=== PATIENT | female | born 1970 | race Caucasian/White ===

== ENCOUNTER 2016-10-22 18:11 | Inpatient (IN) | payer MEDICAID, OTHER ==
[~2016-10-22] VITALS: Ht 152.4 cm; Wt 52.2 kg
[2016-10-22 18:18] VITALS: BP 117/84; PULSE 107; RESP 20; O2SAT 99
--- NOTE | 2016-10-22 20:37 | ED.REPORT ---
HPI-Psychiatric Illness Date of Service Oct 22, 2016 ED Provider: Tulio Burgess DO Pt is an otherwise healthy 46 year old female who presents to the ED complaining of auditory hallucinations. She c/o associated visual and tactile hallucinations. She reports that the voices call her names and state "cunt, I'm going to kill you, you're going to be a missing person, I'm going to put you under the ground. The pt had also went missing recently, but she reports that she did that on her own. She denies vomiting, chills, fever, head injury, and overdose. She denies smoking, alcohol use, and drug use. She denies hurting herself and denies bruising or injury aside from her abdominal surgery. Nursing Notes Stated Complaint: PSYCH EVAL Chief Complaint: Psychiatric Complaint Nursing Notes Reviewed: Yes Allergies: Coded Allergies: Penicillins (Verified Allergy, Unknown, 10/22/16) morphine (Verified Allergy, Unknown, 10/22/16) General Time Seen by MD: 20:28 Chief Complaint Hallucinations, auditory Hx Obtained From: Patient Arrived By: Walk-in Onset Occurred: Onset unknown Symptom Duration: Since onset Severity: Current: No pain currently Severity: Maximum: No pain Recent Healthcare: No recent doctor visit, No recent hospitalization Similar Sx Previous: No Risk-Psychiatric Illness Suicide Risk Stratification Suicide Risk Factors - Adult: No: Alcohol use, Substance abuse RF Statements: Risk factors reviewed Past Medical History Past Medical History None reported - Healthy Past Surgical History Abdominal Smoking History Unknown if Ever Smoker Social History Alcohol Use: Denies alcohol use Drug Use: Denies drug use Other Social History: Good social support Review of Systems + Sensory hallucinations Denies injury aside from surgical operation Constitutional: Denies: Chills, Fever GI: Reports: Diarrhea, Denies: Vomiting Skin: Denies Bruising, Denies Unexplained bruises Psychiatric: Reports: Hallucinations, auditory, Hallucinations, visual Complete sys rev & neg: except as marked. Physical Exam Initial Vital Signs Vital Signs (First) Date Time Temp Pulse Resp B/P Pulse Ox O2 Delivery O2 Flow Rate FiO2 10/22/16 18:18 37.3 107 20 117/84 99 Room Air Initial VS: Reviewed Head / Eyes: Atraumatic, Normocephalic, PERRL ENT: Mucous membranes moist, Conjunctiva normal, No scleral icterus Neck: Supple, Full range of motion Respiratory: Breath sounds normal, Clear to auscultation, No respiratory distress Cardiovascular: Regular rate & rhythm, Heart sounds normal, Intact distal pulses Abdomen / GI: Soft, Non-tender Extremities: Vascular intact, Neuro intact Skin: Warm, Dry, No cyanosis General/Constitutional: Awake, Alert, Cooperative, Not toxic appearing Neurologic: Oriented X3, Speech NL Abnormal Mood/Affect: Positive: Depressed Abnormal Thinking / Perception: Positive: Hallucinations, auditory, Hallucinations, visual She is now acting out on her auditory hallucinations to the point that she is disappearing. She has active psychosis and she does not feel safe. She is gravely disabled. Interpretation & Diagnostics Lab Results Interpretation Result Diagram: 10/22/16 2030 10/22/16 2030 Test 10/22/16 20:13 10/22/16 20:30 Hold Urine Received (Received) White Blood Count 5.5th/mm3 (3.8-10.1) Red Blood Count 4.52mil/mm3 (3.90-5.20) Hemoglobin 13.5g/dL (12.0-15.6) Hematocrit 39.2% (35.0-46.0) Mean Corpuscular Volume 86.7fL (81-100) Mean Corpuscular Hemoglobin 29.9pg (27.0-35.0) Mean Corpuscular Hemoglobin Concent 34.4% (32.0-37.0) Red Cell Distribution Width 11.9% (12.3-15.4) Platelet Count 276bil/L (150-400) Neutrophils (%) (Auto) 47.5% (40-74) Lymphocytes (%) (Auto) 41.9% (14-46) Monocytes (%) (Auto) 8.3% (4-12) Eosinophils (%) (Auto) 1.6% (0-5) Basophils (%) (Auto) 0.7% (0-3) Sodium Level 139mEq/L (134-144) Potassium Level 4.0mEq/L (3.5-5.2) Chloride Level 101mEq/L (97-108) Carbon Dioxide Level 24mmol/L (18-29) Blood Urea Nitrogen 13mg/dL (6-24) Creatinine 0.77mg/dL (0.57-1.00) Estimat Glomerular Filtration Rate 115mL/min (>59) Glucose Level 101mg/dL (60-99) Calcium Level 9.1mg/dL (8.5-10.1) Total Bilirubin 0.2mg/dL (0.0-1.2) Aspartate Amino Transf (AST/SGOT) 13U/L (0-50) Alanine Aminotransferase (ALT/SGPT) 13U/L (0-32) Alkaline Phosphatase 69U/L (25-150) Total Protein 7.1g/dL (6.4-8.4) Albumin 4.4g/dL (3.4-5.0) Thyroid Stimulating Hormone (TSH) 1.330uIU/mL (0.450-4.500) Re-Eval/Medical Decision Source of Hx: Old records Re-Evaluation/Progress : Time of Eval: 21:34 Re-Evaluation/Progress Note: Pt rechecked. Informed pt of plan for admit. Pt understands and agrees with plan for admit. All questions addressed. Consultation : Consulted With: Psychiatry Call Returned at: 21:42 Space Engineer: Will see patient, Agrees with eval, Agrees with plan, Accepts admit Note: metal control worker spoke with psychiatrist who is accepting her for admission. Counseled Regarding: Diagnosis, Lab results, Need for admission Discharge & Departure Impression: Primary Impression: Auditory hallucination Additional Impressions: Hallucinations, visual Depression Depression Type: unspecified Qualified Code: F32.9 - Major depressive disorder, single episode, unspecified Acute psychosis Disposition: ADMITTED TO HOSPITAL Discharge Condition All VS Reviewed: Yes Condition: Stable Referrals: Jillian Serrano (PCP) J Carlosibsarabjit Attestation Portions of this note were transcribed by Elvi Ruffin. I, Dr. Burgess personally performed the history, physical exam and medical decision-making; I reviewed and confirmed the accuracy of the information in the transcribed note. Signed by: Jona Guillaume, 10/22/16 and 21:40. copies to: Jillian Serrano Todd P DO Oct 22, 2016 20:37 Elvi Diggs Oct 22, 2016 21:20
[2016-10-22 20:41] LABS: BASOPHILS % (AUTO) 0.7 % (0-3); EOSINOPHILS % (AUTO) 1.6 % (0-5); MONOCYTES % (AUTO) 8.3 % (4-12); Mean Corpuscular Hemoglobin 29.9 pg (27.0-35.0); Mean Corpuscular Volume 86.7 fL (81-100); NEUTROPHILS % (AUTO) 47.5 % (40-74); Platelet Count 276 bil/L (150-400)
[2016-10-23] MEDS ORDERED: Magnesium Hydroxide 10 mL Oral Concentration PO PRN (00:50)
[2016-10-23] MEDS ORDERED: Alum-Mag Hydrox-Simeth 30 mL Suspension PO PRN (00:50)
[2016-10-23] MEDS ORDERED: Benzocaine-Menthol Lozenge 2/Pkg PO PRN (00:50)
--- NOTE | 2016-10-23 02:43 | NUR ---
New Admit Voluntary admit certified for 6 days. Pt presented to the emergency department seeking help. She has stopped smoking for several months. She uses nicotine gum. She denies the use of alcohol or recreational drugs. She reports a history of COPD and heart failure in relation to her diverticulitis. She had colon surgery, colonoscopy and reconnect surgery in 2013. For the last year she has felt a threatening presence in her life that she states wants to make her disappear. She has been hearing and feeling this negative presence that tells her horrible things. This negative presence wants her to kill herself but she states "I want to live". Pt reports feeling anxious and difficulty sleeping. She received Zyprexa 20mg po in the ED prior to admission. She signed all admission paperwork and was noted to be asleep by 0200. Addendum: 10/23/16 at 0616 by SIVAN TALAMANTES RN Pt has remained asleep since 0200 with no noted distress or awakening per protocol checks. Total sleep 4+ hours.
[2016-10-23] MEDS ORDERED: OLAN20TA16 (11:47)
[2016-10-23] MEDS ORDERED: KLO5T (11:47)
--- NOTE | 2016-10-23 15:19 | HP ---
[address] [address] HISTORY AND PHYSICAL PATIENT: SALINA LOWE : 1970 MR#: [id number] ADMIT: 10/23/2016 JOB ID: [id number] IDENTIFICATION OF THE PATIENT: The patient is a 46-year-old female who presented to the emergency department with evidence of increasing concern of hallucinations; auditory voices of derogatory, depreciating comments and significant tactile hallucinations. The patient was agreeable to sign herself in on a voluntary basis with noted previous involvement with [facility]. CHIEF COMPLAINT: "I do not think my medicines are working." This is per patient report. HISTORY OF PRESENT ILLNESS: As stated above, the patient is a 46-year-old female, who reportedly presented to the emergency department complaining of auditory hallucinations. She reports that the voices tell her that she is not worthy, says negative and depreciating comments. She reports that she identifies that she has been seeing Dr. Munoz at [facility] and is currently prescribed doses of: 1. Citalopram 40 mg daily. 2. Klonopin 0.25 mg t.i.d. p.r.n. 3. Zyprexa 20 mg q.h.s. She reportedly has a long-term history of treatment for depression and anxiety, and indicates that she is not currently connected with a therapist. She reports that her voices have increased in nature over the past six months with increasing intensity over the past week per patient report and the mother's report. The patient has made comments about jumping off of [place]. She also identifies that she has been wearing only certain colors because the voices tell her that they would kill her or turn her family members inside out if she wore anything else. She reports no prior history of psychiatric hospitalization but did indicate that she has been tried on various medications in the past. In reviewing additional history, she did admit to previous difficulties with alcohol and methamphetamine abuse. She reportedly had two separate DUIs in [place] in 2015. The patient reportedly states that she has warrants for her arrest in [place] because of failure to appear for court dates. She denied any history of abuse or trauma. She indicated that she had been twice in her life and, fortunately, no children. PAST MEDICAL HISTORY: She denies any surgical fracture or head trauma history. She does have a history of diverticulitis and has received a care in the past for such. Other medical history is reviewed through the emergency department, I agree with findings. ALLERGIES: Substantial for allergies to: 1. PENICILLIN. 2. MORPHINE. MEDICATIONS: Her current medications as noted above. PAST PSYCHIATRIC HISTORY: Substantial for the above information. SOCIAL HISTORY: Again, the patient lives at home with her mother. She indicated that she has been twice. No children. She admitted to the above methamphetamine and alcohol abuse. She indicated that she has never been in a residential treatment setting. FAMILY HISTORY: Positive for history of depression in a maternal grandfather. DEVELOPMENT HISTORY: She reportedly is originally from the [facility]. She indicated that she graduated from [employer] in [place]. She attended classes at [employer] but no associate degree. MENTAL STATUS EXAMINATION: On general appearance, the patient was cooperative, polite. She maintained good eye contact throughout. Her speech is of soft tone and whisper-like formation. Her mood is neutral. Affect is somewhat anxious and guarded. Her thought process shows no evidence of random flight of ideas, loose or disconnected thinking. Her thought content, she denied any evidence of current suicidal or homicidal ideation. No evidence of active hallucinations or delusions. She was alert, oriented to time and place. Her attention and concentration intact. Memory intact in the short term, prison, recent. Insight and judgment are poor. PHYSICAL EXAMINATION: Vital signs of current: Temperature is 37.3, pulse 107, respirations 20, BP 117/84. PLAN: 1. Recommendation is for continuation of Zyprexa 20 mg q.h.s. 2. Continuation of trazodone 100 mg q.h.s. 3. Release is to be signed for [facility] for further data collection and review prior to institution of alternative agents.
--- NOTE | 2016-10-23 15:54 | NUR ---
Obs Dayshift Pt spent most of her day in bed, very tired, mumbling, and appears med effected. Pt got up for meals and afternoon group. Appears disorganized, disheveled. Poor ADL's, Good meals. Pt appeared to be sleeping most of the time she was in bed.
--- NOTE | 2016-10-23 19:06 | NUR ---
[id number]. nurs. S: "They are going to kill me" O: Pt isolating in bed much of day, in bed, resting and sleeping, stating that sleeping helps block out the evil /negative internal stim sensations she is experiencing. Pt with flat, sad affect, stating that medication is making her feel groggy. P:CNCP
--- NOTE | 2016-10-23 19:32 | NUR ---
Farm Equipment Technician/Counselor: S: "I want to get better and my medicines have to be correct." O: Patient only slept 3.75 hours last night as per staff. She denies S/I and H/I. She reports hearing voices stating that they are going to "sink" her and make her "disappear." Depression is 10/10 and anxiety is 10/10. When asked her mood, patient stated, "Groggy." A: Patient is cooperative, anxious, depressed, flat affect, suspicious at times, limited insight, limited judgment. P: Follow the care plan, coordinate with out-patient providers.
--- NOTE | 2016-10-23 21:11 | NUR ---
Nursing Noc Long conversation with patients mother whom is very involved with patients mental health condition. Mother reports Zyprexa was started 07/19 and increased through 09/18 with negative effects. Reports patient felt flat without emotion and was unable to distinguish any improvement. Pt was started on Geodon 09/18 and reports improved mood but zero change in voices. Pt was also started on Citalopram at the same time as Geodon with marked worsening of symptoms per mother. Mother asked if perhaps some other antipsychotic might be more effective.
--- NOTE | 2016-10-24 05:04 | NUR ---
nursing, nights, 11-7 s/o- has appeared to sleep after 0 during q 15 minute assessments. a- no apparent distress. p- monitor behavior/emotional state, quality, times and amount of sleep, use and effect of medication. erika
--- NOTE | 2016-10-24 11:58 | PROG NOTE ---
[address] [address] PROGRESS NOTE PATIENT: SALINA LOWE : 1970 MR#: [id number] ADMIT: 10/23/2016 JOB ID: [id number] DATE: 10/24/2016 CHIEF COMPLAINT: "I would be willing to give it a try." This is per patient report in reference to initiation of doses of Abilify. HISTORY OF PRESENT ILLNESS: As stated above, the patient openly identified that she had been tried on various agents including Geodon, Zyprexa and Celexa through her outpatient care provider, Dr. Munoz, at [facility] over the past six months with no significant improvement. She readily identifies that she continues to experience auditory hallucinations with tactile representation, feeling that people are touching her. She also identifies significant belief and paranoia in that she is being chased and sought after to replace "God." Per staff report, the patient has been isolative to her room over the past 24 hours. She has come out to eat meals but has not showered. She appears to be mildly paranoid but appropriate on interaction. She was willing to engage in conversations about her medications and stated that she simply feels that they are just not working. OBJECTIVE: On mental status exam, she was cooperative, polite. She maintained intermittent eye contact. Her speech was brief with concrete yes and no answers. Her mood was neutral. Her affect was blunted. Her thought process showed no evidence of racing thoughts, flight of ideas, loose or disconnected thinking. She does appear to be internally preoccupied. Her thought content, she denied any evidence of current suicidal or homicidal ideation. She does appear to be mildly paranoid with active hallucinations noted. She was alert and oriented to time and place. Attention and concentration poor. Insight and judgment are poor. PHYSICAL EXAMINATION: Vital signs of current: Temperature is 37.3, pulse 107, respirations 20, BP 117/84. MEDICATION REVIEW: Includes: 1. Zyprexa 20 mg q.h.s. 2. Vistaril 50 mg q.4 h. p.r.n. 3. Trazodone 100 mg q.h.s. ASSESSMENT: AXIS I 1. Psychosis, not otherwise specified. 2. Rule out major depressive disorder with psychotic features. AXIS II Deferred. AXIS III None. AXIS IV Stressors are noted for chronic mental health, transition of life. AXIS V Global Assessment of Functioning current 30. PLAN: 1. Recommendation is for discontinuation of Zyprexa. 2. Initiation of Abilify 10 mg q.a.m. 3. The patient was informed that Dr. Pearson would be assuming care as of tomorrow and to discuss further for long-term disposition planning with eventual return to [facility].
[2016-10-24] MEDS: ARIPiprazole 10 mg Tablet PO SCH (13:08)
[2016-10-24 13:24] VITALS: BP 88/69; PULSE 96; RESP 16
--- NOTE | 2016-10-24 15:49 | NUR ---
spiritual care: pt request Visited with pt upon her request this morning. Pt was grateful to have a pm head cook to speak to about the voices that have been drowning her thoughts since 2013. She claims that she "just wants to get back to normal." She also stated that she feels desperate enough to kill herself although she doesn't talk about it much. I talked to pt at length and prayed with her. As I left I told staff in the [facility] about the concerns about pt hurting herself. Spiritual care will continue to follow as needed.
--- NOTE | 2016-10-24 17:45 | NUR ---
[id number]. nurs. S/O: Pt reported to newspaper delivery driver that she felt desperate about her ongoing experience with negative voices and was feeling suicidal because she wanted to "end it" , Pt stated that she was feeling better "I have certainly caught up on sleep" Pt attended grps and reported helpful and distracting from focus on internal stim. Pt presenting with brighter affect. Pt advised of Dr's plan to discontinue ineffective zyprexa per her concern and start abilify in am. Pt has completed VIDYA for her mother and pt will advise her of revised care plan. Pt also has craving for nicorettes and order to provide those and 14mg nicoderm prn given. Pt with brighter affect is feeling better and expresses hope that new med will help address AHs/evil presence. P:CNCP
--- NOTE | 2016-10-24 18:34 | NUR ---
Help Desk Support/Counselor: S: "I am ." O: Patient slept 7 hours last night as per staff. She denies S/I and H/I. She reports hearing voices but denies visual hallucinations. Depression and anxiety was not noted. A: Patient is cooperative, polite, blunted affect, internally preoccupied, paranoid, poor insight, poor judgment. P: Follow the care plan, coordinate with out-patient providers.
--- NOTE | 2016-10-25 04:23 | NUR ---
nursing, nights, 11-7 s/o- has appeared to sleep after 2214 during q 15 minute assessments. a- no apparent distress. p- monitor behavior/emotional state, quality, times and amount of sleep, use and effect of medication. erika
--- NOTE | 2016-10-25 04:48 | NUR ---
Nursing Noc Pt reports increased anxiety and difficulty attaining sleep at bed and requested medication assist with same. Appeared to be asleep at 2215 and remained asleep throughout the rest of the shift. Plan to start Abilify today with hopes of controlling reported hallucination which as of yet have not decreased. Pt reality based interaction with staff and noted to be able to carry conversation and use appropriate mood behavior.
[2016-10-25] MEDS: ARIPiprazole 10 mg Tablet PO SCH (08:00)
--- NOTE | 2016-10-25 13:00 | NUR ---
Nursing Note [id number] Mood, Behavior S/O: Pt out of room for meals briefly. Pt states she is having audio & tactile hallucinations that are derogatory in nature. She states the change from Zyprexa to Abilify hasn't been helpful. "Nothing seems to help. I've tried everything." She rates her depression is a "1" on a scale of 1-10/10 the best. She reports her anxiety is an "8" on a scale of 1-10/10 the worst. A: Pt con't to have debilitating hallucinations. P: Provide supportive environment. Monitor medications & effects.
--- NOTE | 2016-10-25 13:56 | PCM.PNPSY ---
Subjective Date of Service Oct 25, 2016 Subjective I spent 30 minutes both reviewing treatment plan with our clinical team, interviewing the patient and providing supportive/educational psychotherapy. I spent more than 50% of the time counseling the patient. I reviewed the treatment plan with the patient and discussed options available including the potential risks, benefits and side effects. sulma reports no change in intensity of auditory hallucinations of a derogatory nature telling her "we are going to kill you". She reports improvement in her Thought organization and mood stability. Staff reports that she has been isolating but is participating in one-to-one and group activities. She slept 8 hours . She feels her depression as a 10 out of 10 and her anxiety as a 10 out of 10. She denies medication side effects. She was able to identify her medications and what they were used to treat. Current Medications Current Medications Aripiprazole 10 mg DAILY PO Last administered on 10/25/16 08:00; Admin Dose 10 MG; Start 10/24/16 at 11:25 Nicotine 1 patch DAILY PRN TOPICAL Last administered on 10/25/16 08:00; Admin Dose 1 PATCH; Start 10/24/16 at 17:35 Nicotine Polacrilex 2 mg Q4H PRN BUCCAL Last administered on 10/24/16 21:10; Admin Dose 2 MG; Start 10/24/16 at 17:35 Olanzapine 20 mg HS PO Last administered on 10/23/16 20:34; Admin Dose 20 MG; Start 10/23/16 at 21:00; Stop 10/24/16 at 11:25; Status DC Mental Status Exam Appearance: Neat/well groomed Attitude: Pleasant Behavior: No unusual behavior Affect: Blunted Mood: Dysthymic Thought Process/Associations: Logical/Sequential, Goal Directed Speech Production: Normal Speech Rate: Normal Speech Articulation: Normal Thought Content: Negativistic, Other (persecutory auditory hallucinations) Danger to Self/Suicidal Ideati: None Danger to Others: None Hallucinations: Auditory (Endorses) Consciousness: Somnolent Orientation: Person, Place, Date, Situation Memory: Grossly Intact Estimate Intellectual Function: Above Average Basis for IQ estimate: Awareness current events, Word use/vocabulary, Educational history, Employment history Attention/Concentration & Cogn: Impaired Cognitive Testing Method: Abstract Reasoning during interview, Proverb interpretation Insight: Limited Judgement: Good Result Diagram: 10/22/16202910/22/162029 Mental Health Plan [place] AXIS I 1. Psychosis, not otherwise specified. 2. Rule out major depressive disorder with psychotic features. AXIS II Deferred. AXIS III None. AXIS IV Stressors are noted for chronic mental health, transition of life. AXIS V Global Assessment of Functioning current 30. Medications Treatments Patient is being provided with a high degree of safety through our unit structure and active adult engagement provided by our mental health professionals, mental health technicians, psychiatric nurses and myself. We are focusing on developing improved coping skills and identifying stressors that may have led to current episode. We will attempt to: * Integrate into therapeutic groups, milieu and individual therapy. * Maintain in a closely monitored and structured unit * Provide low-stimulation environment * Obtain collateral data to assist in treatment planning * Assess degree of lability of affect and impulse control * Complete safety plan * Decrease frequency of relapse and need for re-hospitalization * Denies thoughts of harm to self and/or others * Establish a consistent sleep pattern * Medication effective in stabilization of mood and/or thought process * Reduce the risk of imminent harm to self and/or others by providing a safe environment * Tolerates medication without side effects Patient will be on the following psychiatric medications: Abilify 10 daily Trazodone 100 at bedtime Patient's legal status Voluntary Anticipated number of hospital days to achieve above goals: Four Disposition: Home Gustavo Pearson MD Oct 25, 2016 13:56
[2016-10-25 14:14] VITALS: BP 91/65; PULSE 104; RESP 16
--- NOTE | 2016-10-25 15:09 | NUR ---
Spooler Operator Automatic/Counselor: S: "I have been very sleepy the past 2 days." O: Patient slept 8 hours last night as per staff. She denies S/I and H/I. She reports hearing voices that are telling her "horrible things." She denies visual hallucinations. Depression is 10/10 and anxiety is 10/10. When asked her mood, patient stated, "Very sleepy." In reference to the voices, patient also stated the voices are saying she's going to become a missing person and they're going to kill her. They were also saying when she leaves the hospital, they are going to pull her under the earth. She reports that the voices have names: Freddy, Marvin, Ailyn, , and Lucy, to name a few. A: Patient is cooperative, polite, blunted affect, internally preoccupied, depressed, anxious, poor insight, poor judgment. P: Follow the care plan, coordinate with out-patient providers.
--- NOTE | 2016-10-25 17:06 | NUR ---
Observations 0900 - 0 Pt was flat, isolative, anxious, depressed, internally preoccupied. Pt was in her room and in bed most of the shift. Pt is unsocial and mostly keeps to herself. Pt speech and eye contact was ok. Pt is pleasant and friendly upon approach. Pt is polite and cooperative. Pt maintained behavior control throughout the shift. Pt did not attend group or unit activities. Pt attended meals in D.R. and ate 100% of meals. Pt ate snack. Pt was observed every 15 minutes throughout the shift as ordered.
--- NOTE | 2016-10-26 05:25 | NUR ---
Nursing NOC shift Patient restless thru the night, prn vistaril fairly effective at HS. Staff provided 1:1 listening support. C/o discomfort w/ her bed/mattress; egg crate placed. No adverse side effects r/t 1st dose of Abilify, no GI upset, no rash, afebrile. 15 min checks completed thru the noc. CTM for changes.
[2016-10-26] MEDS: ARIPiprazole 10 mg Tablet PO SCH (08:16)
[2016-10-26 09:02] VITALS: BP 102/80; PULSE 60; RESP 16
--- NOTE | 2016-10-26 11:50 | NUR ---
Observations 0700 - 1500 Pt was a little brighter today. Pt was out of her room more today and was more social with peers and staff. Pt speech and eye contact was ok. Pt is pleasant and friendly upon approach. Pt is polite and cooperative. Pt maintained behavior control throughout the shift. Pt attended community meeting, group and unit activities. Pt attended meals in D.R. and ate 100% of breakfast and lunch. Pt received a couple of phone calls. Pt went out on patio with staff and peers to get some fresh air. Pt was observed every 15 minutes throughout the shift as ordered.
--- NOTE | 2016-10-26 14:01 | NUR ---
Shift note 7a-7p Pt. states she is mildly anxious and that she gets more anxious as the day goes on because of the voices. States she is mildly depressed. Reports frequent auditory hallucinations of voices telling her they are going to turn her inside out and kidnap her. Denies any thoughts of self harm or harm to others. Pt. has been pleasant and cooperative today. Participating in all group activities.
--- NOTE | 2016-10-26 20:35 | PCM.PNPSY ---
Subjective Date of Service Oct 26, 2016 Subjective The patient reports today that she is feeling better and initially requested discharge. As she had only been on the aripiprazole for a little over a day, she was advised that she needed more time to stabilize to ensure that the medication was helpful. The patient agreed to this. She reports that she still needs an appointment with her therapist, Jillian Serrano but has an appointment with Dr. Munoz on November 07. She denies current side effects or medical issues. Sleep: 4.75 hours, "very little but I left my [NicoDerm] patch on" Appetite: "Still hungry" Suicidal and homicidal ideation: Denies Auditory hallucinations: The patient reports that they are "not constant like they were before" Visual hallucinations: Reports still experiencing these for the last year with scenes of . Other Psychotic Symptoms: N/A Anxiety: 06/14 Depression: 07/12 versus 02/11 on admission. Mental Status Exam Appearance: Neat/well groomed Attitude: Pleasant Behavior: No unusual behavior Affect: Blunted Mood: Dysthymic Thought Process/Associations: Logical/Sequential, Goal Directed Speech Production: Normal Speech Rate: Normal Speech Articulation: Normal Thought Content: Negativistic, Other (persecutory auditory hallucinations) Danger to Self/Suicidal Ideati: None Danger to Others: None Hallucinations: Auditory (Endorses), Visual (Endorses) Consciousness: Alert Orientation: Person, Place, Date, Situation Memory: Grossly Intact Estimate Intellectual Function: Average Basis for IQ estimate: Awareness current events, Word use/vocabulary, Educational history, Employment history Attention/Concentration & Cogn: Impaired Cognitive Testing Method: Abstract Reasoning during interview, Proverb interpretation Insight: Limited Judgement: Good Result Diagram: 10/22/16202910/22/162029 Mental Health Plan The patient is a 46-year-old female with a history of psychosis who has had trials of a number of psychotropic medications including Geodon, Zyprexa and Celexa through her outpatient care provider, Dr. Munoz, at [facility] over the past six months with no significant improvement. She continues to report report auditory and tactile hallucinations, feeling that people are touching her. She also endorses paranoid themes feeling that she is being chased and sought after to replace "God." The patient reports that her symptoms have improved with aripiprazole but is still experiencing auditory and visual hallucinations as well as paranoia. The patient has limited insight into the need for stabilization prior to discharge. [place] AXIS I 1. Psychosis, not otherwise specified. 2. Rule out major depressive disorder with psychotic features. AXIS II Deferred. AXIS III None. AXIS IV Moderate AXIS V Global Assessment of Functioning current 35. Medications Aripiprazole 10 mg daily Trazodone 100 mg nightly with zolpidem back up. Hydroxyzine 50 mg when necessary anxiety or agitation Treatments 1. The patient is admitted to the inpatient unit and will be provided a safe and secure environment. 2. The patient is denying current active suicidality and is not in need of a one-to-one at this time. He is agreeing to notify us should he have any acute suicidal or homicidal thoughts. 3. The patient is encouraged to participate with group and milieu activities. 4. The patient will be seen by the treatment team on a daily basis to assess symptoms, side effects and response to treatment. 5. The patient will be continued on her current medication 6. As the patient had difficulty sleeping last night will add zolpidem if trazodone ineffective. 7. Anticipated length of stay is 5-7 days. Sathya Olson MD Oct 26, 2016 20:35 * Establish a consistent sleep pattern * Medication effective in stabilization of mood and/or thought process * Reduce the risk of imminent harm to self and/or others by providing a safe environment * Tolerates medication without side effects Patient will be on the following psychiatric medications: Abilify 10 daily Trazodone 100 at bedtime Patient's legal status Voluntary Anticipated number of hospital days to achieve above goals: Four Disposition: Home Sathya Olson MD Oct 26, 2016 20:35
--- NOTE | 2016-10-26 22:16 | NUR ---
Nurses Note Evening Patients' mood slightly improved this shift as she remained in the common area socializing with peers,attended groups and stated anxiety was better today than yesterday. Patients' thoughts have been clear,organized and reality based. Patient c/o difficulty sleeping and has Ambien ordered if Trazadone is ineffective. Patient remains medication compliant without adverse effects.Continue POC and maintain q 15min. checks for safety and support. Addendum: 10/26/16 at 2222 by CIARAN KEN RN Amended: Links added.
--- NOTE | 2016-10-27 05:45 | NUR ---
Nursing note: nightman Patient appears to be sleeping on safety checks during the night. No complaints voiced
[2016-10-27] MEDS: ARIPiprazole 10 mg Tablet PO SCH (09:02)
[2016-10-27 09:30] VITALS: BP 89/64; PULSE 75; RESP 16
[2016-10-27 10:00] VITALS: BP 89/64; PULSE 75; RESP 16
--- NOTE | 2016-10-27 14:27 | NUR ---
NURSING NOTE [id number] Mood: "okay... groggy" *smiles* Affect: fatigued, pleasant when engaged in conversation Behavior: pt. slept in until 9 a.m., came out to eat breakfast and then returned to bed. Reports she is feeling groggy from her medications. Out of her room midday watching TV and social off and on w/peers. Thought processes: endorses AH and says "they are still here 24/7 but not as loud" and reports she is getting deeper sleep at night which "helps keep the voices down." Reports she is motivated for discharge and feels ready and safe to leave as soon as possible.
--- NOTE | 2016-10-27 16:10 | PCM.PNPSY ---
Subjective Date of Service Oct 27, 2016 Subjective The patient reports that during the first part of yesterday she felt well but by the evening she felt that her paranoia was getting "really intense right before bed." The patient used Vistaril and Ambien last night and then felt groggy this morning. Typically hydroxyzine does not cause drowsiness for this patient. We discussed using scheduled trazodone at a higher dose and then zolpidem after 10 PM only if she still was experiencing insomnia. She had no cogwheeling or dystonia on physical examination and her AIMS examination was negative. She denies current side effects or medical issues. Sleep: 7.5 hours Appetite: "Still up a bit" Suicidal and homicidal ideation: Denies Auditory hallucinations: The patient reports that they are "still there, but not as strong... More distant." Visual hallucinations: Denies Other Psychotic Symptoms: N/A Anxiety: 5/10 Depression: 0/10 Current Medications Current Medications Zolpidem Tartrate 5 mg HS PRN PO Last administered on 10/26/16t 22:31; Admin Dose 5 MG; Start 10/26/16 at 20:05 Mental Status Exam Vital Signs Vital Signs Date Time Temp Pulse Resp B/P Pulse Ox O2 Delivery O2 Flow Rate FiO2 10/27/16 10:00 35.8 75 16 89/64 10/27/16 09:30 35.8 75 16 89/64 Appearance: Neat/well groomed Attitude: Pleasant Behavior: No unusual behavior Affect: Well Modulated/Appropriate Mood: Dysthymic Thought Process/Associations: Logical/Sequential, Goal Directed Speech Production: Normal Speech Rate: Normal Speech Articulation: Normal Thought Content: Negativistic Danger to Self/Suicidal Ideati: None Danger to Others: None Hallucinations: Auditory (Endorses), Visual (Denies) Consciousness: Alert Orientation: Person, Place, Date, Situation Memory: Grossly Intact Estimate Intellectual Function: Average Basis for IQ estimate: Awareness current events, Word use/vocabulary, Educational history, Employment history Attention/Concentration & Cogn: Impaired Cognitive Testing Method: Abstract Reasoning during interview, Proverb interpretation Insight: Limited Judgement: Good Result Diagram: 10/22/16202910/22/162029 Mental Health Plan The patient is a 46-year-old female with a history of psychosis who has had trials of a number of psychotropic medications including Geodon, Zyprexa and Celexa through her outpatient care provider, Dr. Munoz, at [facility] over the past six months with no significant improvement. Prior to admission She continued to report report auditory and tactile hallucinations, feeling that people were touching her. She also endorsed paranoid themes feeling that she is being chased and sought after to replace "God." The patient reports that her symptoms have improved with aripiprazole but is still experiencing auditory hallucinations as well as paranoia but feels that they are diminished. The patient was agreeable to make sure that she is stable prior to discharge and that she can manage her evening paranoia. [place] AXIS I 1. Psychosis, not otherwise specified. 2. Rule out major depressive disorder with psychotic features. AXIS II Deferred. AXIS III None. AXIS IV Moderate AXIS V Global Assessment of Functioning current 35. Medications Aripiprazole 10 mg daily Trazodone 200 mg nightly with zolpidem back up. Hydroxyzine 50 mg when necessary anxiety or agitation Treatments 1. The patient is admitted to the inpatient unit and will be provided a safe and secure environment. 2. The patient is denying current active suicidality and is not in need of a one-to-one at this time. He is agreeing to notify us should he have any acute suicidal or homicidal thoughts. 3. The patient is encouraged to participate with group and milieu activities. 4. The patient will be seen by the treatment team on a daily basis to assess symptoms, side effects and response to treatment. 5. The patient will be continued on her current medication 6. As the patient had hangover from zolpidem, will increase trazodone to 200 mg. 7. Anticipated length of stay is 5-7 days. Sathya Olson MD Oct 27, 2016 16:10
--- NOTE | 2016-10-27 18:33 | NUR ---
Nurses Note Evening Patient has been out on the unit socializing with select peers. Her mood has been improved with intermittent periods of anxiety,relieved by Hydroxyzine PRN. Patient admits to continued auditory hallucinations that are more quiet than before. Patient c/o sedation from HS medications last night since she c/o inability to sleep. Patients' appetite has been within normal limits, she remains disheveled. Patient is eager for discharge tenatively planned for tomorrow.Maintain q 15min. checks for safety and support. Addendum: 10/27/16 at 1853 by CIARAN KEN RN Amended: Links added.
--- NOTE | 2016-10-27 19:31 | NUR ---
Observations 899 - 2129 Pt affect and mood was labile, preocupied, friendly with select peers, emotional and a little anxious. Pt was out of her room most of the day and social with peers and staff. Pt speech and eye contact was ok. Pt is pleasant and friendly upon approach. Pt is polite and cooperative. Pt maintained behavior control throughout the shift. Pt attended community meeting and set a daily goal. Pt rated her mood 12/12. Pt attended art group and unit activities. Pt attended meals in D.R. and ate 100% of all meals. Pt received a couple of phone calls. Pt went out on patio with staff and peers to get some fresh air. Pt was observed every 15 minutes throughout the shift as ordered.
--- NOTE | 2016-10-28 05:20 | NUR ---
Sleep Pt has remained asleep since 0 with no noted distress or awakening per protocol checks. No prn medication needed for sleep tonight. She remains asleep at current time with over 6.5 hours.
[2016-10-28] MEDS: ARIPiprazole 10 mg Tablet PO SCH (09:16)
[2016-10-28 10:00] VITALS: BP 94/52; PULSE 80; RESP 16
[2016-10-28] MEDS ORDERED: ARIPiprazole 10 mg Tablet PO ONE (11:10)
--- NOTE | 2016-10-28 13:56 | NUR ---
NURS Note DAYSHIFT Mood: "My moods pretty good." Endorses some anxiety that is worse at night. Denies depression. Affect: Well-modulated. Behavior: Pleasant and appropriate with staff and peers. Attended group. Thought Content/Process: "I'm still hearing voices. They are telling me horrible things." Endorses AH. Denies VH. Denies SI, HI. PRN/NURS Notes: Dr. Olson has increased pts dose of Abilify from 10 mg to 20 mg daily and Trazadone from 100 mg to 200 mg daily.
--- NOTE | 2016-10-28 16:18 | NUR ---
Polysomnographic Technician/Counselor S:" The voices and visuals are scary, and embarrassing." O: Patient did not express any SI or HI, no anxiety or depression. Patient did express AVH. She slept for 7 hours. A: Patient stated that her medications made her sleepy but that she was in a good mood. She is embarrassed by the things the voices tell her and scared by what she is visualizing. She is unaware of any particular triggers for either, but appears worn down by dealing with them. She stated that it upsets her because the visions and voices are threatening towards herself as well as her loved ones, but she is aware that it's hallucinations. She just wants them to stop. P: Follow care plan and coordinate with outpatient providers.
--- NOTE | 2016-10-28 21:21 | NUR ---
NURSING NOTE [id number] Mood: "one day at a time" *smiles* Affect: pleasant, appropriate, polite Behavior: friendly and social w/peers, visited w/her mother, went out on the patio. Requested to take her HS Trazodone earlier this evening d/t feeling oversedated the last few mornings. She is med compliant. Thought processes: continues to endorse AH, denies VH/SI/HI. She reports that though she had originally hoped to discharge today she is feeling glad that she is staying longer to monitor her medication changes and states she feels "very supported."
--- NOTE | 2016-10-28 22:32 | PCM.PNPSY ---
Subjective Date of Service Oct 28, 2016 Subjective The patient reported that the voices are telling her that they will kill her, that "they want to take over heaven." She reports that the voices tell her that she will be turned inside out and periodically sees family members inside out with a aishwarya being pushed through them. Patient fearful of returning home due to voices. She denies current side effects or medical issues. Sleep: 7 hours Appetite: "Ca;,omg dpwm" Suicidal and homicidal ideation: Denies Auditory hallucinations: The patient reports that they are "still there, but not as strong... More distant." As above. Visual hallucinations: As above Other Psychotic Symptoms: N/A Anxiety: 09/11 Depression: 08/12 Current Medications Current Medications Aripiprazole 10 mg ONCE ONCE PO Last administered on 10/28/16 12:30; Admin Dose 10 MG; Start 10/28/16 at 11:10; Stop 10/28/16 at 11:14; Status DC Trazodone HCl 200 mg HS PO Last administered on 10/28/16 20:07; Admin Dose 200 MG; Start 10/27/16 at 21:00 Mental Status Exam Appearance: Neat/well groomed Attitude: Pleasant Behavior: No unusual behavior Affect: Well Modulated/Appropriate Mood: Dysthymic Thought Process/Associations: Logical/Sequential, Goal Directed Speech Production: Normal Speech Rate: Normal Speech Articulation: Normal Thought Content: Negativistic Danger to Self/Suicidal Ideati: None Danger to Others: None Delusions: Paranoid (Endorses) Hallucinations: Auditory (Endorses), Visual (Endorses) Consciousness: Alert Orientation: Person, Place, Date, Situation Memory: Grossly Intact Estimate Intellectual Function: Average Basis for IQ estimate: Awareness current events, Word use/vocabulary, Educational history, Employment history Attention/Concentration & Cogn: Impaired Cognitive Testing Method: Abstract Reasoning during interview, Proverb interpretation Insight: Limited Judgement: Good Result Diagram: 10/22/16 2030 10/22/162029 Mental Health Plan The patient is a 46-year-old female with a history of psychosis who has had trials of a number of psychotropic medications including Geodon, Zyprexa and Celexa through her outpatient care provider, Dr. Munoz, at [facility] over the past six months with no significant improvement. Prior to admission She continued to report report auditory and tactile hallucinations, feeling that people were touching her. She also endorsed paranoid themes feeling that she is being chased and sought after to replace "God." The patient reports that her symptoms have improved with aripiprazole but is still experiencing auditory and visual hallucinations as well as paranoia but feels that they are diminished. The patient was agreeable to make sure that she is stable prior to discharge and that she can manage her evening paranoia. At this time, the patient does not feel safe to return home. [place] AXIS I 1. Psychosis, not otherwise specified. 2. Rule out major depressive disorder with psychotic features. AXIS II Deferred. AXIS III None. AXIS IV Moderate AXIS V Global Assessment of Functioning current 35. Medications Aripiprazole 20 mg daily Trazodone 200 mg nightly with zolpidem back up. Hydroxyzine 50 mg when necessary anxiety or agitation Treatments 1. The patient is admitted to the inpatient unit and will be provided a safe and secure environment. 2. The patient is denying current active suicidality and is not in need of a one-to-one at this time. He is agreeing to notify us should he have any acute suicidal or homicidal thoughts. 3. The patient is encouraged to participate with group and milieu activities. 4. The patient will be seen by the treatment team on a daily basis to assess symptoms, side effects and response to treatment. 5. The patient will be continued on her current medication 6. Increase aripiprazole to 20mg daily. 7. Anticipated length of stay is 5-7 days. Sathya Olson MD Oct 28, 2016 22:32
--- NOTE | 2016-10-29 05:24 | NUR ---
Nursing Note Remote Inpatient Coder 11pm to 7am Pt asleep at start of shift and slept through the night with uninterrupted sleep. No concerns voiced or observed. Monitored pt with q 15 min face checks for safety, location and accountability
[2016-10-29] MEDS: ARIPiprazole 10 mg Tablet PO SCH (08:57)
--- NOTE | 2016-10-29 13:17 | NUR ---
NURS Note DAYSHIFT Mood: "I feel anxious in my body." Anxiety 11/11 (took PRN Vistaril 50 mg); depression, 06/14. Affect: Well-modulated. Behavior: Out of bed at 0900. Pt watching television. Thought Content/Process: "Multiple voices are telling me that today is the day Im going to . They're going to pull me under the earth. And they show me how they kill people. It's really disgusting." Endorses AH, VH. Denies SI, HI. PRN/NURS Notes: Continues to use nicorette lozenges.
--- NOTE | 2016-10-29 16:11 | NUR ---
Content Development Manager/Counselor S:"The hallucinations upset me." O: Patient did not express any SI or HI, but still endorses AVH that are very upsetting. She stated she was anxious but did not rate her anxiety or depression on a scale. A: Patient is due to be discharged tomorrow, and stated that she felt that breathing exercises and imagery discussed during group would be helpful coping skills for her. She is in a happy mood when she is not seeing or hearing the hallucinations. She is out in the milieu interacting, but did complain of hip pain. P: Follow care plan and coordinate with outpatient providers.
[2016-10-29 16:32] VITALS: BP 98/67; PULSE 74; RESP 16
--- NOTE | 2016-10-29 21:02 | NUR ---
Obs Dayshift Pt has been out in the milieu most of the day, takes short breaks in her room. Pt spent most of the time pacing/walking halls w/ a peer, outside on the patio, watching TV, engaging well w/ peers and staff. Attends, participates and engages in groups. Pt is very disheveled in appearance, poor ADL's, good eye contact.
--- NOTE | 2016-10-29 21:15 | PCM.PNPSY ---
Subjective Date of Service Oct 29, 2016 Subjective The patient reported that the voices are telling her that they will kill her. She reports seeing an unknown person being decapitated during the interview. 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 She reports that her mother informed her that trazodone was also ineffective for her insomnia and advised the patient to ask for an alternative. She denies current side effects or medical issues. Sleep: 7 hours, had to take Ambien, no hangover this am Appetite: "good" Suicidal and homicidal ideation: Denies Auditory hallucinations: The patient reports that they are more distant but still telling her that they will kill her. Visual hallucinations: As above Other Psychotic Symptoms: N/A Anxiety: 5/10 Depression: 0/10 Current Medications Current Medications Aripiprazole 10 mg ONCE ONCE PO Last administered on 10/28/16 12:30; Admin Dose 10 MG; Start 10/28/16 at 11:10; Stop 10/28/16 at 11:14; Status DC Aripiprazole 20 mg DAILY PO Last administered on 10/29/16 08:57; Admin Dose 20 MG; Start 10/29/16 at 08:30 Mirtazapine 15 mg HS PO Last administered on 10/29/16 20:44; Admin Dose 15 MG; Start 10/29/16 at 21:00 Mental Status Exam Vital Signs Vital Signs Date Time Temp Pulse Resp B/P Pulse Ox O2 Delivery O2 Flow Rate FiO2 10/29/16 16:32 35.8 74 16 98/67 Appearance: Neat/well groomed Attitude: Pleasant Behavior: No unusual behavior Affect: Well Modulated/Appropriate Mood: Anxious Thought Process/Associations: Logical/Sequential, Goal Directed Speech Production: Normal Speech Rate: Normal Speech Articulation: Normal Thought Content: Negativistic Danger to Self/Suicidal Ideati: None Danger to Others: None Delusions: Paranoid (Endorses) Hallucinations: Auditory (Endorses), Visual (Endorses) Consciousness: Alert Orientation: Person, Place, Date, Situation Memory: Grossly Intact Estimate Intellectual Function: Average Basis for IQ estimate: Awareness current events, Word use/vocabulary, Educational history, Employment history Attention/Concentration & Cogn: Impaired Cognitive Testing Method: Abstract Reasoning during interview, Proverb interpretation Insight: Limited Judgement: Good Mental Health Plan The patient is a 46-year-old female with a history of psychosis who has had trials of a number of psychotropic medications including Geodon, Zyprexa and Celexa through her outpatient care provider, Dr. Munoz, at [facility] over the past six months with no significant improvement. Prior to admission She continued to report report auditory and tactile hallucinations, feeling that people were touching her. She also endorsed paranoid themes feeling that she is being chased and sought after to replace "God." The patient reports that her symptoms have improved with aripiprazole but is still experiencing auditory and visual hallucinations as well as paranoia but feels that they are diminished. The patient was agreeable to make sure that she is stable prior to discharge and that she can manage her evening paranoia. The patient is reporting ongoing anxiety and insomnia not relieved by trazodone. Discussed risks and benefits of mirtazapine and patient agreed to continue. At this time, the patient does not feel ready to return home. Practiced CBT worksheets for paranoia and auditory hallucinations. [place] AXIS I 1. Psychosis, not otherwise specified. 2. Rule out major depressive disorder with psychotic features. AXIS II Deferred. AXIS III None. AXIS IV Moderate AXIS V Global Assessment of Functioning current 35. Medications Aripiprazole 20 mg daily Mirtazapine 15 mg nightly with zolpidem back up. Hydroxyzine 50 mg when necessary anxiety or agitation Treatments 1. The patient is admitted to the inpatient unit and will be provided a safe and secure environment. 2. The patient is denying current active suicidality and is not in need of a one-to-one at this time. He is agreeing to notify us should he have any acute suicidal or homicidal thoughts. 3. The patient is encouraged to participate with group and milieu activities. 4. The patient will be seen by the treatment team on a daily basis to assess symptoms, side effects and response to treatment. 5. The patient will be continued on her current medication 6. Discontinue trazodone. 7. Start mirtazapine 15mg nightly 8. Symptom tracking logs for paranoia and voices. 9. Anticipated length of stay is 5-7 days. Sathya Olson MD Oct 29, 2016 21:14
--- NOTE | 2016-10-29 22:15 | NUR ---
RE: sleeping meds pt. took remeron, 50min later stated it wasn't doing anything, refused 200mg trazedone stating "it made her feel hungover the next day" pt. took 5mg ambien, will reassess. Addendum: 10/30/16 at 0058 by JOCELYNN ONEIL RN pt. still having insomnia, she agreed to take 100mg of the trazedone. Addendum: 10/30/16 at 0651 by SIVAN TALAMANTES RN Adequate sleep of 7 hours.
[2016-10-30] MEDS: ARIPiprazole 10 mg Tablet PO SCH (08:03)
--- NOTE | 2016-10-30 11:27 | PCM.DIMED ---
Discharge Instructions Date of Service Oct 30, 2016 Dates of Hospitalization Oct 23, 2016 at 00:36 Discharge Diagnosis Discharge Diagnosis AXIS I 1. Psychosis, not otherwise specified. 2. Rule out major depressive disorder with psychotic features. AXIS II Deferred. AXIS III None. AXIS IV Moderate AXIS V Global Assessment of Functioning current 45. Test Results Test Results CBC Test 10/22/16 20:30 White Blood Count 5.5th/mm3 (3.8-10.1) Red Blood Count 4.52mil/mm3 (3.90-5.20) Hemoglobin 13.5g/dL (12.0-15.6) Hematocrit 39.2% (35.0-46.0) Mean Corpuscular Volume 86.7fL (81-100) Mean Corpuscular Hemoglobin 29.9pg (27.0-35.0) Mean Corpuscular Hemoglobin Concent 34.4% (32.0-37.0) Red Cell Distribution Width 11.9% (12.3-15.4) Platelet Count 276bil/L (150-400) Neutrophils (%) (Auto) 47.5% (40-74) Lymphocytes (%) (Auto) 41.9% (14-46) Monocytes (%) (Auto) 8.3% (4-12) Eosinophils (%) (Auto) 1.6% (0-5) Basophils (%) (Auto) 0.7% (0-3) CMP Test 10/22/16 20:30 Sodium Level 139mEq/L Potassium Level 4.0mEq/L Chloride Level 101mEq/L Carbon Dioxide Level 24mmol/L Blood Urea Nitrogen 13mg/dL Creatinine 0.77mg/dL Estimat Glomerular Filtration Rate 115mL/min Glucose Level 101mg/dL Calcium Level 9.1mg/dL Total Bilirubin 0.2mg/dL Aspartate Amino Transf (AST/SGOT) 13U/L Alanine Aminotransferase (ALT/SGPT) 13U/L Alkaline Phosphatase 69U/L Total Protein 7.1g/dL Albumin 4.4g/dL Thyroid Stimulating Hormone (TSH) 1.330uIU/mL Diet Discharge Diet: No restrictions Activity Discharge Activity: No restrictions Patient Instructions Patient Instructions Should you have any thoughts of harming yourself or others, please call the crisis line, your provider, 911, or go to the nearest Emergency Department. Do not change or discontinue your medications without discussing with your provider. You have been given prescriptions for your new medication Follow-up plan Counselor Saida on 11/04/16 at 10:00am [address] Tonny Munoz on 11/07/16 at 2:00pm [address] [address] Sathya Olson MD Oct 30, 2016 11:26
[2016-10-30] MEDS ORDERED: MIRT15TA6 PO (11:32)
[2016-10-30] MEDS ORDERED: HYDR50CA3 PO (11:32)
[2016-10-30] MEDS ORDERED: ZLP5T PO (11:32)
[2016-10-30] MEDS ORDERED: ARIP20TA10 PO (11:32)
--- NOTE | 2016-10-30 12:50 | NUR ---
Discharge Patient ambulated from unit, accompanied by mother. Patient alert and oriented at time of discharge. Prior to discharge, patient denied depression, suicidal ideation, homicidal ideation and reported anxiety as 7/10 ("I am just nervous about leaving, but I feel ready to go", and reports that she continues to have visual/auditory hallucinations,"I see people, but they are dark and the voices I hear are the dark people I see". "I can tell reality from the hallucinations now". 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 Discharge instructions/medications reviewed with patient prior to discharge. All questions addressed. Patient belongings, discharge instructions and prescriptions in hand. Prescriptions faxed to [facility] in [facility].
--- NOTE | 2016-10-30 13:31 | NUR ---
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 She denies S/I and H/I. She reports the voices are "better and more distant." She states there are no visual hallucinations and the voices shut off when she is asleep. Depression and anxiety are both "good." Out-patient appointments: Saida, Counselor at [facility], 11/04/16 at 10:00am and Dr. Munoz, medication management at [facility] 11/07/16 at 2:00pm. A: Patient is cooperative, polite, bright affect, hopeful, future oriented poor insight, poor judgment. P: Follow the care plan, coordinate with out-patient providers.
--- NOTE | 2016-10-30 23:45 | PCM.DC.MED ---
Discharge Summary Date of Service Oct 30, 2016 Dates of Hospitalization Date of Hospital Admission Oct 23, 2016 at 00:36 Date of Discharge: Oct 30, 2016 Providers: Admitting Physician: Kiko Byrd DO Primary Care Physician: Jillian Serrano Attending Physician: Kiko Byrd DO Diagnosis at Time of Discharge Diagnosis at Time of Discharge AXIS I 1. Psychosis, not otherwise specified. 2. Rule out major depressive disorder with psychotic features. AXIS II Deferred. AXIS III None. AXIS IV Moderate AXIS V Global Assessment of Functioning current 45. Brief History Per Dr. Byrd H&P of 10/23/16: IDENTIFICATION OF THE PATIENT: The patient is a 46-year-old female who presented to the emergency department with evidence of increasing concern of hallucinations; auditory voices of derogatory, depreciating comments and significant tactile hallucinations. The patient was agreeable to sign herself in on a voluntary basis with noted previous involvement with [facility] [place]. CHIEF COMPLAINT: "I do not think my medicines are working." This is per patient report. HISTORY OF PRESENT ILLNESS: As stated above, the patient is a 46-year-old female, who reportedly presented to the emergency department complaining of auditory hallucinations. She reports that the voices tell her that she is not worthy, says negative and depreciating comments. She reports that she identifies that she has been seeing Dr. Munoz at [facility] and is currently prescribed doses of: 1. Citalopram 40 mg daily. 2. Klonopin 0.25 mg t.i.d. p.r.n. 3. Zyprexa 20 mg q.h.s. She reportedly has a long-term history of treatment for depression and anxiety, and indicates that she is not currently connected with a therapist. She reports that her voices have increased in nature over the past six months with increasing intensity over the past week per patient report and the mother's report. The patient has made comments about jumping off of [place]. She also identifies that she has been wearing only certain colors because the voices tell her that they would kill her or turn her family members inside out if she wore anything else. She reports no prior history of psychiatric hospitalization but did indicate that she has been tried on various medications in the past. In reviewing additional history, she did admit to previous difficulties with alcohol and methamphetamine abuse. She reportedly had two separate DUIs in [place] in 2016. The patient reportedly states that she has warrants for her arrest in [place] because of failure to appear for court dates. She denied any history of abuse or trauma. She indicated that she had been twice in her life and, fortunately, no children. Hospital Course The patient was placed on aripiprazole and eventually titrated to 20mg with good results as the patient reported a decrease in auditory hallucinations, feeling that they were much more distant. She also reported that the disturbing visual imagery had not demonstrated itself on the day of discharge. The patient also reported insomnia and was originally tried on trazodone which was titrated to 200mg and still required additional zolpidem for sleep. The patient was therefore switched to mirtazapine with some improvement, but the patient still reported only 5.5 hours sleep, but no hangover and felt rested. The patient participated in groups and mindfulness/relaxation exercises. The patient requested discharge and was looking forward to returning to her home. At the time of discharge, the patient was reporting her mood was "ready to go home." Sleep was reported as "okay" 5.5+ hours per staff. Appetite was reported as "good." Her anxiety and depression were reported as "good." She reported auditory hallucinations were "more distant" and expressed some residual paranoia/apprehension and denied visual hallucinations, and any thought , active intent or plan of hurting herself or others. There was no dystonia or cogwheeling on exam and AIMS score was 0.She denied medication side effects. Exam Vital Signs (Last) Date Time Temp Pulse Resp B/P Pulse Ox O2 Delivery O2 Flow Rate FiO2 10/29/16 16:32 35.8 74 16 98/67 Exam Mental Status Exam Appearance: Neat/well groomed Attitude: Pleasant Behavior: No unusual behavior Affect: Well Modulated/Appropriate Mood: Anxious Thought Process/Associations: Logical/Sequential, Goal Directed Speech Production: Normal Speech Rate: Normal Speech Articulation: Normal Thought Content: Negativistic Danger to Self/Suicidal Ideation: None Danger to Others: None Delusions: Paranoid (Endorses, mild) Hallucinations: Auditory (Endorses), Visual (Denies) Consciousness: Alert Orientation: Person, Place, Date, Situation Memory: Grossly Intact Estimate Intellectual Function: Average Basis for IQ estimate: Awareness current events, Word use/vocabulary, Educational history, Employment history Attention/Concentration & Cognition: Impaired Cognitive Testing Method: Abstract Reasoning during interview, Proverb interpretation Insight: Fair and improving Judgement: Good Test 10/22/16 20:13 10/22/16 20:30 Hold Urine Received (Received) White Blood Count 5.5th/mm3 (3.8-10.1) Red Blood Count 4.52mil/mm3 (3.90-5.20) Hemoglobin 13.5g/dL (12.0-15.6) Hematocrit 39.2% (35.0-46.0) Mean Corpuscular Volume 86.7fL (81-100) Mean Corpuscular Hemoglobin 29.9pg (27.0-35.0) Mean Corpuscular Hemoglobin Concent 34.4% (32.0-37.0) Red Cell Distribution Width 11.9% (12.3-15.4) Platelet Count 276bil/L (150-400) Neutrophils (%) (Auto) 47.5% (40-74) Lymphocytes (%) (Auto) 41.9% (14-46) Monocytes (%) (Auto) 8.3% (4-12) Eosinophils (%) (Auto) 1.6% (0-5) Basophils (%) (Auto) 0.7% (0-3) Sodium Level 139mEq/L (134-144) Potassium Level 4.0mEq/L (3.5-5.2) Chloride Level 101mEq/L (97-108) Carbon Dioxide Level 24mmol/L (18-29) Blood Urea Nitrogen 13mg/dL (6-24) Creatinine 0.77mg/dL (0.57-1.00) Estimat Glomerular Filtration Rate 115mL/min (>59) Glucose Level 101mg/dL (60-99) Calcium Level 9.1mg/dL (8.5-10.1) Total Bilirubin 0.2mg/dL (0.0-1.2) Aspartate Amino Transf (AST/SGOT) 13U/L (0-50) Alanine Aminotransferase (ALT/SGPT) 13U/L (0-32) Alkaline Phosphatase 69U/L (25-150) Total Protein 7.1g/dL (6.4-8.4) Albumin 4.4g/dL (3.4-5.0) Thyroid Stimulating Hormone (TSH) 1.330uIU/mL (0.450-4.500) Discharge Medications Discharge Medications Aripiprazole (Aripiprazole) 20 Mg Tablet 20 MG PO DAILY Prescribed by: ELYSIA ANDERSON MD Mirtazapine (Mirtazapine) 15 Mg Tablet 15 MG PO HS Prescribed by: ELYSIA ANDERSON MD As needed Hydroxyzine Pamoate (HydrOXYzine Pamoate) 50 Mg Capsule 50 MG PO BID PRN PRN For Anxiety Prescribed by: ELYSIA ANDERSON MD Zolpidem (Ambien) 5 Mg Tablet 5 MG PO HS PRN PRN If no sleep 1 hr after Remeron Prescribed by: ELYSIA ANDERSON MD Followup Plan Disposition: The patient was requesting discharge and the patient was denying any suicidal or homicidal ideation. She was discharged to return home. The patient verbally consented to take the prescribed medications. The patient verbally expressed understanding of the risks, benefits, alternative treatment options, and risks of not taking the prescribed medication. The patient verbally expressed understanding of the medication instructions, that she will adhere to the prescribed medication, and that she will go to all aftercare scheduled appointments. Follow-up plan Counselor Saida on 11/04/16 at 10:00am [place] [address] Tonny Munoz on 11/07/16 at 2:00pm [place] [address] Discharge Diet: No restrictions Discharge Activity: No restrictions Patient Instructions Should you have any thoughts of harming yourself or others, please call the crisis line, your provider, 911, or go to the nearest Emergency Department. Do not change or discontinue your medications without discussing with your provider. You have been given prescriptions for your new medication Elysia Anderson MD Oct 30, 2016 23:45
== END 2016-10-30 12:50 | disposition home or self-care (01) | DRG 885 ==
LOC: SED 18:11 → MHC 10-23 00:36
PROVIDERS: ADMIT Psychiatry & Neurology Psychiatry; ATTEND Psychiatry & Neurology Psychiatry
DX: F29 Unspecified psychosis not due to a substance or known physiological condition (principal)